=== PATIENT | female | born 1940 | race Caucasian/White ===

== ENCOUNTER 2022-04-07 12:08 | Emergency (ER) | payer MEDICARE | END 2022-04-07 13:36 | disposition home or self-care (01) | LOC: FB.ED 12:08 | DX: I80.3 Phlebitis and thrombophlebitis of lower extremities, unspecified (principal) | CPT/HCPCS: 36415; 85379; 99283 ==

== ENCOUNTER 2023-12-21 10:59 | Emergency (ER) | payer MEDICARE ==
[2023-12-21 11:59] LABS: BASOPHILS ABSOLUTE AUTO 0.1 x10-3/uL (0.0-0.1); BASOPHILS PERCENT AUTO 0.8 % (0.2-1.5); EOSINOPHILS ABSOLUTE AUTO 0.2 x10-3/uL (0.0-0.8); EOSINOPHILS PERCENT AUTO 2.2 % (0.6-8.1); HEMOGLOBIN 11.2 g/dL (11.4-15.5); LYMPHOCYTES PERCENT AUTO 24.2 % (18.4-52.1); MEAN CORPUSCULAR HEMOGLOBIN 29.6 pg (23.9-33.9); MEAN CORPUSCULAR VOLUME 92.6 fL (76.7-100.5); MEAN PLATELET VOLUME 8.7 fL (7.1-12.4); MONOCYTES ABSOLUTE AUTO 0.8 x10-3/uL (0.3-1.0); MONOCYTES PERCENT AUTO 9.6 % (4.4-15.7); NEUTROPHILS ABSOLUTE AUTO 5.3 x10-3/uL (1.5-6.3); NEUTROPHILS PERCENT AUTO 63.2 % (30.8-76.2); PLATELET COUNT,PLT 255 x10(3)uL (151-488); RED BLOOD CELL COUNT 3.78 x10(6)uL (3.60-5.20); RED CELL DISTRIBUTION WIDTH 14.5 % (12.3-16.5); WHITE BLOOD CELL COUNT,WBC 8.3 x10-3/uL (3.0-10.3)
[2023-12-21 12:02] LABS: CARBON DIOXIDE,CO2 26 mmol/L (21-32); CHLORIDE,CL 103 mmol/L (100-110); POTASSIUM,K 4.8 mmol/L (3.5-5.3); SODIUM,NA 138 mmol/L (135-145)
[2023-12-21 13:30] LABS: BLOOD UREA NITROGEN,BUN 24 mg/dL (7-18); BUN/CREATININE RATIO 18.5 (9-20); CALCIUM 9.3 mg/dL (8.6-10.2); CREATININE 1.3 mg/dL (0.55-1.02); ESTIMATED GFR 41 mL/min (>60); GLUCOSE RANDOM 106 mg/dL (80-116)
[2023-12-21 13:31] LABS: A/G RATIO 0.7; ALANINE AMINOTRANSFERASE,ALT 7 U/L (12-36); ALKALINE PHOSPHATASE 129 IU/L (56-112); ASPARTATE AMNIOTRANSFERASE,AST 12 IU/L (5-25); BILIRUBIN TOTAL 0.4 mg/dL (0.1-1.3); PROTEIN TOTAL,TP 7.4 g/dL (6.0-8.0)
== END 2023-12-21 13:19 | disposition home or self-care (01) ==
LOC: FB.ED 10:59
DX: G89.18 Other acute postprocedural pain (principal); S72.14 Intertrochanteric fracture of femur; J44.9 Chronic obstructive pulmonary disease, unspecified; N18.9 Chronic kidney disease, unspecified; Z79.899 Other long term (current) drug therapy
CPT/HCPCS: 36415; 73552-RT; 80053; 85025; 85379; 99283

== ENCOUNTER 2024-01-10 08:14 | Inpatient (IN) | payer MEDICARE ==
[2024-01-10] MEDS ORDERED: Menthol 10%/Methyl Salicylate 30% 85 GM Tube TOP PRN (14:06)
[2024-01-10] MEDS ORDERED: Carboxymethylcellulose Sodium 0.5% Ophth Soln 15 ML Bottle EYEBOTH PRN (14:14)
[2024-01-10] MEDS: traMADol 50 MG Tab PO PRN (15:09)
[2024-01-10] MEDS: Dorzolamide 2% Ophth Soln 10 ML Bottle EYEBOTH SCH (15:11)
[2024-01-10] MEDS: Acetaminophen 325 MG Tab PO PRN (19:16)
[2024-01-10] MEDS: Diclofenac Sodium 1% Gel 100 GM Tube TOP PRN (19:17)
[2024-01-10] MEDS: Gabapentin 100 MG Cap PO SCH (20:26)
[2024-01-10] MEDS: Apixaban 2.5 MG Tab PO SCH (20:26)
[2024-01-10] MEDS: Latanoprost 0.005% Ophth Soln 2.5 ML Bottle EYEBOTH SCH (20:27)
[2024-01-11] MEDS: Rosuvastatin 10 MG Tab PO SCH (08:53)
[2024-01-11] MEDS: Aspirin 81 MG Tab.EC PO SCH (08:54)
[2024-01-11] MEDS: Folic Acid 1 MG Tab PO SCH (08:54)
[2024-01-11] MEDS: amLODIPine 5 MG Tab PO SCH (08:55)
[2024-01-11] MEDS: Cholecalciferol (Vitamin D3) 25 MCG Tab PO SCH (08:56)
[2024-01-11] MEDS: Melatonin 3 MG Tab PO PRN (20:44)
[2024-01-12] MEDS: Ferrous Sulfate 325 MG Tab PO SCH (09:05)
[2024-01-12] MEDS: Apixaban 5 MG Tab PO SCH (09:06)
[2024-01-15] MEDS: Melatonin 3 MG Tab PO SCH (20:54)
[2024-01-16 09:44] LABS: HEMATOCRIT 24.2 % (34.2-48.2); HEMOGLOBIN 7.7 g/dL (11.4-15.5)
[2024-01-24] MEDS: Sulfamethoxazole/Trimethoprim 800-160 MG Tab PO SCH (20:10)
[2024-01-26 10:21] LABS: HEMATOCRIT 25.3 % (34.2-48.2); HEMOGLOBIN 8.1 g/dL (11.4-15.5)
== END 2024-01-26 13:57 | disposition home health service (06) | DRG 561 ==
LOC: FB.MS 13:06
PROVIDERS: ADMIT Family Medicine; ATTEND Family Medicine
DX: S72.141D Displaced intertrochanteric fracture of right femur, subsequent encounter for closed fracture with routine healing (principal); K52.9 Noninfective gastroenteritis and colitis, unspecified; E78.00 Pure hypercholesterolemia, unspecified; J44.9 Chronic obstructive pulmonary disease, unspecified; Z66 Do not resuscitate; E66.9 Obesity, unspecified; Z68.31 Body mass index [BMI] 31.0-31.9, adult; M81.0 Age-related osteoporosis without current pathological fracture; I25.10 Atherosclerotic heart disease of native coronary artery without angina pectoris; N18.32 Chronic kidney disease, stage 3b; D50.9 Iron deficiency anemia, unspecified; I35.0 Nonrheumatic aortic (valve) stenosis; Z88.5 Allergy status to narcotic agent; Z79.01 Long term (current) use of anticoagulants; Z98.51 Tubal ligation status; Z79.82 Long term (current) use of aspirin; Z79.899 Other long term (current) drug therapy; Z98.890 Other specified postprocedural states; Z87.891 Personal history of nicotine dependence; Z86.718 Personal history of other venous thrombosis and embolism; X58.XXXD Exposure to other specified factors, subsequent encounter
CPT/HCPCS: 36415; 85014; 85018; 94150; 97110-GO; 97110-GP; 97116-GP; 97161-GP; 97165-GO; 97530-GO; 97530-GP; 97535-GO; 99305; 99308; 99315; A9270-GY